=== PATIENT | female | born 1970 | race Caucasian/White ===

== ENCOUNTER 2020-10-26 10:28 | Emergency (ER) | payer OTHER ==
[2020-10-26 11:07] LABS: HEMOGLOBIN 16.5 gm/dl (12.3-15.3); RED BLOOD COUNT 5.91 M/UL (4.00-5.10); WHITE BLOOD COUNT 14.2 K/UL (4.5-11.0)
[2020-10-26 11:38] LABS: BUN/CREATININE RATIO 20 (0-10)
[2020-10-26] MEDS ORDERED: REGLAN10 MG PO (13:32)
[2020-10-26] MEDS ORDERED: PHENERGAN 25 MG25 M1 PO (13:32)
== END 2020-10-26 14:00 | disposition home or self-care (01) ==
LOC: ER1 10:28
PROVIDERS: Physician Assistant
DX: R10.11 Right upper quadrant pain (principal); R10.12 Left upper quadrant pain; R11.2 Nausea with vomiting, unspecified; E11.9 Type 2 diabetes mellitus without complications; I10 Essential (primary) hypertension; Z88.0 Allergy status to penicillin
CPT/HCPCS: 80053; 81001; 82150; 82550; 82553; 83690; 83874; 84484; 85025; 93005; 96374; 96375; 99284; J1200; J1885; J2765

== ENCOUNTER 2021-02-13 12:39 | Emergency (ER) | payer OTHER ==
[~2021-02-13 12:39] MED LIST: PHENERGAN 25 MG25 M1 PO; REGLAN10 MG PO
[2021-02-13 14:21] LABS: HEMOGLOBIN 17.6 gm/dl (12.3-15.3); RED BLOOD COUNT 5.81 M/UL (4.00-5.10); WHITE BLOOD COUNT 20.4 K/UL (4.5-11.0)
[2021-02-13] MEDS ORDERED: CYCLOBENZAPRINE10 MG PO (21:08)
== END 2021-02-13 21:15 | disposition home or self-care (01) ==
LOC: ER1 12:39
PROVIDERS: Physician Assistant
DX: M54.42 Lumbago with sciatica, left side (principal); E11.9 Type 2 diabetes mellitus without complications; I10 Essential (primary) hypertension; Z88.0 Allergy status to penicillin
CPT/HCPCS: 72132; 80053; 81001; 85025; 85652; 86140; 87040; 93005; 96374; 96375; 99284; J1885; J2270; J2405; J7030; Q9967